=== PATIENT | female | born 1990 | race Caucasian/White ===

== ENCOUNTER 2019-12-06 12:56 | Emergency (ER) | payer OTHER ==
--- NOTE | 2019-12-06 13:11 | Emergency Department Record ---
History of Present Illness - General Stated Complaint: KAVITA/CHEST PAIN Time Seen by Provider: 12/06/19 12:58 Source: Patient Mode of Arrival: Ambulatory Limitations: No limitations - History of Present Illness Initial Comments: 29 yo female presents with three hours of a feeling of rapid heart rate, discomfort in her chest, and short of breath. She was at work during the onset. She denies any similar history of the same in the past. She is not a smoker. No HRT. No history of underlying heart or lung disease. She has been well lately without any changes in her health. MD Complaint: Chest pain, Other (Palpitations) -: Hour(s) (3) Onset: During rest Pain Location: Substernal Severity: Moderate Quality: Heaviness Consistency: Constant Improves With: Nothing Worsens With: Exertion Context: Other Anginal Symptoms: Dyspnea Other Symptoms: Palpitations Treatments Prior to Arrival: None - Related Data Previous Rx's Medication Instructions Recorded Diltiazem HCl [Cardizem Cd] 120 mg PO DAILY #30 cap.er.24h 12/06/19 Allergies Allergy/AdvReac Type Severity Reaction Status Date / Time Penicillins Allergy Unknown HIVES Verified 12/06/19 13:05 bupropion HCl AdvReac itching Verified 12/06/19 13:05 [From Wellbutrin] Review of Systems Constitutional: Denies: Chills, Fever, Malaise, Night sweats, Weakness Eyes: Denies: Eye discharge, Eye pain, Photophobia, Vision change ENT: Denies: Congestion, Throat pain Respiratory: Reports: Dyspnea. Denies: Cough, Hemoptysis, Stridor, Wheezes Cardiovascular: Reports: Chest pain, Palpitations. Denies: Edema, Syncope Endocrine: Denies: Fatigue, Polydipsia, Polyuria Gastrointestinal: Denies: Abdominal pain, Diarrhea, Nausea, Vomiting Genitourinary: Denies: Dysuria, Urgency Musculoskeletal: Denies: Arthralgia, Back pain, Myalgia Skin: Denies: Bruising, Change in color, Rash Neurological: Reports: Tingling. Denies: Headache, Numbness, Weakness Psychiatric: Denies: Anxiety Hematological/Lymphatic: Denies: Easy bleeding, Easy bruising Physical Exam - General General Appearance: Alert, Oriented x3, Cooperative, No acute distress Limitations: No limitations - Head Head exam: Atraumatic, Normal inspection - Eye Eye exam: Normal appearance, PERRL. negative: Conjunctival injection, Scleral icterus - ENT ENT exam: Normal exam, Mucous membranes moist Ear exam: Normal external inspection Nasal Exam: Normal inspection Mouth exam: Normal external inspection - Neck Neck exam: Normal inspection, Full ROM. negative: Lymphadenopathy, Thyromegaly - Respiratory Respiratory exam: Normal lung sounds bilaterally. negative: Respiratory distress, Rhonchi, Stridor, Wheezes - Cardiovascular Cardiovascular Exam: Normal rhythm, Normal heart sounds, Tachycardia. negative: Regular rate, Diastolic murmur, Systolic murmur Peripheral Pulses: 2+: Radial (R), Radial (L) - Rectal Rectal exam: Deferred - exam: Deferred - Extremities Extremities exam: negative: Calf tenderness, Pedal edema, Tenderness - Back Back exam: Reports: Normal inspection - Neurological Neurological exam: Alert, Oriented X3. negative: Altered, Motor sensory deficit - Psychiatric Psychiatric exam: Normal affect, Normal mood - Skin Skin exam: Dry, Intact, Normal color, Warm Course - Reevaluation(s) Reevaluation #1: The patient is in SVT Carotid massage and valsalva technique were attended without success EKG #1: 13:03 Rate: 192 Rhythm: SVT [place]: Normal Intervals: Normal ST segments: Normal Prior: None 12/06/19 13:11 12/06/19 13:17 The patient was given 6mg IVP of adenosine. She immediately converted to sinus tachycardia. She tolerated the procedure well 12/06/19 13:55 EKG #2: 13:44 Rate: 110 Rhythm: sinus [place]: normal Intervals: normal ST segments: no acute abnormalities Prior: 12/06/19 14:04 The K on the CMP is 3.1 Mg is normal at 2.2 12/06/19 14:05 12/06/19 14:09 TSH is 2.6 12/06/19 14:20 The patient is comfortable. No symptoms. HR still 110-114. 12/06/19 14:56 HR 94 Resting comfortably. 12/06/19 15:27 Resting comfortably. Asymptomatic. HR is 94. 12/06/19 15:47 The patient has been seen by cardiology. The plan is for Cardizem RX and arrangement of outpatient follow up. The patient now informs me that over the last few weeks she has had a few episodes of feeling like she can't catch her breath that last seconds. I explained that she does not have any PE risk factors but I will add a D-Dimer. I explained that I do not feel any additional testing is needed if negative. If positive I would perform a CT of the chest. 12/06/19 18:00 The Echo was reviewed by Dr Davis. It was normal The CTA was negative for PE. A 6mm nodule was noted in RUL. I gave a copy of the CT to the patient with the 6-12 months follow up instructions that she will review with her doctor. She has a Wednesday follow up Cardiology appointment with [place] [facility] [place] Medical Decision Making - Lab Data Result diagrams: 12/06/19 Unknown 12/06/19 Unknown Disposition Disposition: Discharge Clinical Impression: SVT (supraventricular tachycardia) Disposition: Home, Self-Care Condition: (1) Good Instructions: Supraventricular Tachycardia (ED) Additional Instructions: Avoid caffeine Return to the ER if you have any return of the heart racing, any shortness of breath, or any new concerns Prescriptions: Diltiazem HCl [Cardizem Cd] 120 mg PO DAILY #30 cap.er.24h Referrals: Tulio Davis M.D. [MEDICAL DOCTOR] - [facility] [Provider Group] Forms: Patient Portal Access Time of Disposition: 18:02 Quality - Quality Measures Quality Measures: N/A - Blood Pressure Screening Does Patient Have Any of the Following: No Blood Pressure Classification: Pre-Hypertensive BP Reading Systolic Measurement: 119 Diastolic Measurement: 81 Screening for High Blood Pressure: < Pre-Hypertensive BP, F/U Documented > [G8950] Pre-Hypertensive Follow-up Interventions: Referral to alternative/primary care provider.
[2019-12-06 13:23] LABS: ABSOLUTE NEUTROPHIL COUNT 5.89; BASO % 0.2 % (0-6); EOS % 0.4 % (0-6); GRAN % 47.8 % (47-80); HEMOGLOBIN 14.6 gm/dl (11.6-16.0); LYMPH % 42.6 % (16-45); MEAN CELL VOLUME 87.9 fl (81-97); MEAN CORPUSCULAR HEMOGLOBIN 30.5 pg (27-33); MEAN CORPUSCULAR HGB CONC 34.8 g/dl (32-36); PLATELET COUNT 476 K/uL (130-400); RED BLOOD COUNT 4.78 M/uL (3.80-5.40); RED CELL DISTRIBUTION WIDTH 12.3 % (11.5-14.5); WHITE BLOOD COUNT W/O DIFF 12.3 K/uL (4.2-12.2)
[2019-12-06 13:35] LABS: BLOOD UREA NITROGEN 6 mg/dL (6-20); CREATININE 0.7 mg/dL (0.5-0.9); EST GLOMERULAR FILTRATION RATE > 60 mL/min; TOTAL PROTEIN 8.2 g/dL (6.6-8.7)
[2019-12-06 13:37] LABS: GLUCOSE,RANDOM 115 mg/dL (74-109)
[2019-12-06 13:40] LABS: ALB/GLOB RATIO 1.4 (1.1-1.8); ALBUMIN 4.8 g/dL (4.0-5.0); ALKALINE PHOSPHATASE 87 U/L (35-104); ALT/SGPT 11 U/L (<33); AST/SGOT 13 U/L (10.0-35.0)
[2019-12-06] MEDS ORDERED: ADENOSINE 6 MG/2 ML VIAL IVP ONE (13:49)
[2019-12-06] MEDS ORDERED: POTASSIUM CHLORIDE 20 MEQ TABLET PO ONE (14:04)
[2019-12-06] MEDS ORDERED: SOD CHLOR 0.9% WITH KCL 40MEQ 40 MEQ/1,000 ML IV.SOLN IV ONE (14:04)
[2019-12-06] MEDS ORDERED: METOPROLOL TART 5 MG/5 ML VIAL IV ONE (14:19)
--- NOTE | 2019-12-06 17:53 | CT ANGIOGRAM REPORT ---
EXAMINATION: CT Angiography of the Thorax EXAM DATE: 12/06/2019 5:27 PM TECHNIQUE: Standard protocol CT angiogram images were obtained through the chest following the admini stration of intravenous contrast. Coronal and sagittal MIP 3-D reformations were performed. IV Contrast: The amount and type of contrast are recorded in the medical record. INDICATION: short of breath. COMPARISON: None ENCOUNTER: Not applicable FINDINGS: Pulmonary Artery: No pulmonary embolism is present. Aorta: No thoracic aortic aneurysm or dissection is present. Right Heart Strain: None. Heart : There is no pericardial effusion. Emmy and Mediastinum: No lymphadenopathy. Lung Parenchyma: There is a 6-7 mm noncalcified right upper lobe nodule with lobulated margins (2:77 ). The lungs are otherwise clear. Central Airways: Normal. Pleural Effusion: None. Upper Abdomen: Unremarkable. Musculoskeletal and Chest Wall: Unremarkable. IMPRESSION: 1. No pulmonary embolism or other acute pulmonary process. 2. Right upper lobe nodule measuring 6-7 mm. For nodules of this size (6-8 mm), recommendations fro m the Fleischner Society are as follows: in patients without risk factors for malignancy, follow-up a t 6-12 months then consider repeat at 18-24 months; in patients with risk factors (e.g. smoking), fol low-up in 6-12 months and again at 18-24 months. Dictated by: Natan Huang MD on 12/06/2019 5:45 PM. .
--- NOTE | 2019-12-07 10:59 | Cardiology Consult ---
DATE OF CONSULTATION: 12/06/2019 REASON FOR CONSULTATION: SVT. HISTORY OF PRESENT ILLNESS: This is a pleasant 29-year-old female with no previous cardiac history. The patient was at work and was talking to a coworker when she felt her heart race, lightheadedness and short of breath with mild chest discomfort. She denies any previous episodes. She does not have any significant past medical history. She does not have a history of premature coronary artery disease in her family. She denies a smoking or alcohol history. Prior to this she denies any episodes of chest pain, orthopnea, or PND. Denies any previous episodes of palpitations, lightheadedness, or dizziness. No complaints of lower extremity edema. The patient stated the episode lasted and she presented to [facility] for further evaluation. ALLERGIES: PENICILLIN AND WELLBUTRIN. REVIEW OF SYSTEMS: Constitutional - Denies chills, fever, malaise or weakness. HEENT - Denies any visual or hearing changes. Denies any congestion. Denies any epistaxis. Respiratory - Denies any shortness of breath. Denies cough. Cardiovascular - Chest pressure and palpitations. Positive lightheadedness. Negative syncope. Negative edema. Endocrine - Denies fatigue, polydipsia, or polyuria. Gastrointestinal - Denies abdominal pain, diarrhea, nausea, or vomiting. Genitourinary - Denies dysuria or urgency. Musculoskeletal - Denies any arthralgia or back pain. Skin - Denies any rashes or bruising. Neurological - Denies any headache, numbness or weakness. Psychiatric - Denies anxiety. Hematological - Lymphatic. Denies any easy bleeding or bruising. PHYSICAL EXAMINATION: Vital signs - Blood pressure 104/72, pulse rate 100. GENERAL: The patient is alert, oriented and answers questions appropriately. HEENT: Normocephalic, atraumatic. Extraocular movements are intact. Pupils are equal and round. NECK: Supple without lymphadenopathy, thyromegaly, or bruit. LUNGS: Clear to auscultation in the lung chowdhury without rales, rhonchi, or wheeze. CARDIAC: Regular rate and rhythm. No significant murmur was appreciated. ABDOMEN: Soft, nontender. Bowel sounds present in all four quadrants. EXTREMITIES: No edema. 2+ pulses bilaterally. SKIN: Warm and dry. DIAGNOSTIC STUDIES: EKG on admission demonstrated SVT at a rate of 192. She was given Adenosine and this broke. Post Adenosine demonstrates sinus tachycardia at a rate of 110 b.p.m. Laboratories demonstrated WBC 12.3, hemoglobin 14.6, hematocrit 42, platelet count 476, sodium 140, potassium 3.1, chloride 101, CO2 of 20, BUN 6, creatinine 0.7, glucose 115. ASSESSMENT/PLAN: SVT. PATIENT WAS GIVEN 6 MG OF ADENOSINE IV AND SHE CONVERTED SINUS TACHYCARDIA. PREVIOUSLY THEY HAD TRIED VALSALVA TECHNIQUES INCLUDING CAROTID MASSAGE WITHOUT SUCCESS. THE PATIENT WILL BE GIVEN A PRESCRIPTION FOR CARDIZEM CD 120 MG Q DAY. SHE WILL FOLLOW-UP WITH DR. LI TO DISCUSS POSSIBLE SVT ABLATION. THE PATIENT WAS SEEN AND EXAMINED WITH HER MOTHER PRESENT, QUESTIONS WERE ANSWERED, DR. RIVERA SAW AND EXAMINED THE PATIENT AND AGREES WITH THE ABOVE. Thank you for the opportunity to participate in this patient's care. The patient has a follow-up appointment with Dr. Li our boilermaker pipe fitter on Wednesday12/11/2019 at 3:45 p.m. Echocardiography was also performed and preliminary report was normal LVEF. JOB NUMBER: [id number] MTDD
== END 2019-12-06 18:26 | disposition home or self-care (01) ==
LOC: ER 12:56
DX: I47.1 Supraventricular tachycardia (principal); R06.00 Dyspnea, unspecified
CPT/HCPCS: 71275; 80053; 83735; 84443; 84484; 84703; 85025; 85379; 93005; 93010; 96365; 96375; 99285